=== PATIENT | male | born 1975 | race Caucasian/White ===

== ENCOUNTER 2024-05-20 00:21 | Outpatient (CLI) | payer OTHER, SELFPAY ==
--- NOTE | 2024-05-20 10:35 | DI.RAD_ITS ---
Exam(s) XR KNEE LT 3V AP,LAT,ELBERT EXAM: XR KNEE LT 3V AP,LAT,ELBERT CLINICAL HISTORY: ENCOUNTER FOR DISABILITY DETERMINATION, Z02.71. TECHNIQUE: 2D digital imaging was performed. Three views. COMPARISON: No exams were available for comparison FINDINGS: BONES: No acute fracture is present. No bony destructive lesion is seen. Lucencies related to prev ious hardware in the distal femur. JOINTS: The knee is normally aligned. No joint effusion is seen. The joint spaces are maintained. Mild periarticular spurring. SOFT TISSUE: Normal. IMPRESSION: Mild degenerative changes. DATA REPOSITORY: RADIATION DOSE DELIVERED:
--- NOTE | 2024-05-20 10:35 | DI.RAD_ITS ---
Exam(s) XR SHOULDER RT COMPLETE 2+V EXAM: XR SHOULDER RT COMPLETE 2+V CLINICAL HISTORY: ENCOUNTER FOR DISABILITY DETERMINATION, Z02.71. TECHNIQUE: 2D digital imaging was performed. Five views. COMPARISON: No exams were available for comparison FINDINGS: BONES: No acute fracture is present. No bony destructive lesion is seen.Metallic anchors in the anter ior glenoid related to prior surgery. JOINTS: No dislocation present. Mild spurring at the AC joint. Glenohumeral joint space is maintain ed. Mild spurring at the inferior glenohumeral joint. SOFT TISSUE: Normal. IMPRESSION: Mild degenerative changes. DATA REPOSITORY: RADIATION DOSE DELIVERED:
== END 2024-05-20 00:41 ==
PROVIDERS: Visit Provider Pediatrics Pediatric Rheumatology
DX: Z02.71 Encounter for disability determination (principal)
CPT/HCPCS: 73562; 73030

== ENCOUNTER 2024-09-19 11:56 | Outpatient (CLI) | payer MEDICAID, SELFPAY ==
[2024-09-19 08:53] LABS: Hemoglobin A1C 5.5 % (<5.7)
[2024-09-19 09:07] LABS: ALT 42 U/L (16-63); AST 30 U/L (15-37); Albumin 3.8 g/dL (3.4-5.0); Alkaline Phosphatase 83 U/L (46-116); Anion Gap 6.8 mmol/L (3-11); BUN 18 mg/dL (7-18); Bilirubin, Total 0.43 mg/dL (0.2-1.0); CO2 29.2 mmol/L (21.0-32.0); CREATININE 1.2 mg/dL (0.70-1.30); Calcium 8.8 mg/dL (8.5-10.1); Chloride 103 mmol/L (98-107); Glucose 99 mg/dL (74-106); Potassium 4.4 mmol/L (3.5-5.1); Sodium 139 mmol/L (136-145); Total Protein 7.6 g/dL (6.4-8.2); Uric Acid 8.5 mg/dL (3.5-7.2)
[2024-09-19 09:28] LABS: Cholesterol 238 mg/dL (<200); HDL Cholesterol 42 mg/dL (40-60); Triglyceride 567 mg/dL (<150)
[2024-09-19 09:41] LABS: LDL CHOLESTEROL 96 mg/dL (<100)
== END 2024-09-19 11:57 | disposition home or self-care (01) ==
LOC: LBO 11:57
PROVIDERS: PCP Nurse Practitioner Family; Visit Provider Nurse Practitioner Family
DX: Z13.220 Encounter for screening for lipoid disorders (principal); Z13.1 Encounter for screening for diabetes mellitus; I10 Essential (primary) hypertension; M10.9 Gout, unspecified
CPT/HCPCS: 36415; 80053; 80061; 83721; 83036; 84550

== ENCOUNTER 2024-12-09 10:17 | Outpatient (CLI) | payer MEDICAID, SELFPAY ==
--- NOTE | 2024-12-09 10:09 | DI.RAD_ITS ---
Exam(s) XR SHOULDER RT COMPLETE 2+V EXAM: XR SHOULDER RT COMPLETE 2+V CLINICAL HISTORY: M25.511 Pain in right shoulder, Worsening shoulder pain. TECHNIQUE: 2D digital imaging was performed. COMPARISON: CR XR SHOULDER RT COMPLETE 2+V from 05/20/2024 FINDINGS: Five views Again noted are 5 fastener devices in the anterior osseous glenoid consistent with prior labral repai r. There is no evidence of fracture nor dislocation of the glenohumeral joint. On the axial view there is a 5 x 2 mm calcific density seen just anterior to the humeral head consistent with element of calc ific tendinitis. The subacromial space does not appear diminished and there is no upward subluxation of the humeral head within the osseous glenoid. However, there is moderate degenerative change in t he glenohumeral joint with small osteophyte on the inferior articular surface of the humeral head. At the level the AC joint there downgoing osteophytes on both sides of this articulation, larger on t he clavicular side. These may be causing an element of impingement. Bone density is normal. No osseous lesions. IMPRESSION: Previous anterior labral surgery again noted. No fractures evident. Degenerative changes as above a nd small soft tissue calcific density seen anteriorly which may indicate an element of calcific rotat or cuff tendinitis. DATA REPOSITORY: RADIATION DOSE DELIVERED:
== END 2024-12-09 10:37 ==
LOC: DI 10:17
PROVIDERS: PCP Nurse Practitioner Family; Visit Provider Nurse Practitioner Family
DX: M25.511 Pain in right shoulder (principal)
CPT/HCPCS: 73030